=== PATIENT | male | born 2000 | race Caucasian/White ===

== ENCOUNTER 2018-01-28 23:03 | Emergency (ER) | payer OTHER ==
[2018-01-29] MEDS ORDERED: CEPHALEXIN 500MG STARTER PACK 4 CAP BTL PO STA (01:20)
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
[2018-01-29 02:00] VITALS: BP 108/62; PULSE 75; RESP 18; TEMP 98.1
== END 2018-01-29 02:00 | disposition home or self-care (01) ==
LOC: EC 23:03
DX: L03.115 Cellulitis of right lower limb (principal); T25.121A Burn of first degree of right foot, initial encounter; T31.0 Burns involving less than 10% of body surface; X12.XXXA Contact with other hot fluids, initial encounter; Y99.0 Civilian activity done for income or pay; Y92.69 Other specified industrial and construction area as the place of occurrence of the external cause
CPT/HCPCS: 99283